=== PATIENT | male | born 1945 | race Hispanic/Latino ===

== ENCOUNTER → 2020-01-18 | Outpatient (CLI) | payer OTHER | END | disposition home or self-care (01) | LOC: SHCH 14:52 | PROVIDERS: ATTEND Internal Medicine | DX: I87.2 Venous insufficiency (chronic) (peripheral) (principal); I65.23 Occlusion and stenosis of bilateral carotid arteries | CPT/HCPCS: 93880 ==

== ENCOUNTER 2021-08-16 08:38 | Day surgery (SDC) | payer OTHER ==
[2021-08-10 10:30] LABS: BASOPHILS % (AUTO) 0.5 % (0.0-5.0); EOSINOPHILS % (AUTO) 1.7 % (0.0-8.0); HEMATOCRIT 42.2 % (42-54); LYMPHOCYTES % (AUTO) 23.5 % (21.0-51.0); MEAN CORPUSCULAR HEMOGLOBIN 31.6 pg (27.0-33.0); MEAN CORPUSCULAR HGB CONC 34.1 g/dL (32.0-36.0); MEAN CORPUSCULAR VOLUME 92.7 fL (79-99); MONOCYTES % (AUTO) 8.8 % (3.0-13.0); NEUTROPHILS % (AUTO) 65.2 % (40.0-77.0); PLATELET COUNT (AUTO) 153 K/uL (130-400); RED BLOOD CELL COUNT(AUTO) 4.55 MIL/uL (4.50-6.20); RED CELL DISTRIBUTION WIDTH 13.1 % (11.0-15.5); WHITE BLOOD COUNT (AUTO) 5.9 K/uL (4.8-10.8)
[2021-08-10 10:30] LABS: APPEARANCE,URINE CLEAR (CLEAR); BILIRUBIN,URINE NEGATIVE (NEGATIVE); COLOR,URINE YELLOW (YELLOW); GLUCOSE, URINE (UA) NEGATIVE (NEGATIVE); KETONES,URINE NEGATIVE (NEGATIVE); LEUKOCYTE ESTERASE ,URINE NEGATIVE (NEGATIVE); NITRATE,URINE NEGATIVE (NEGATIVE); OCCULT BLOOD,URINE SMALL (NEGATIVE); PH,URINE 5.5 (5.0-8.0); PROTEIN,URINE NEGATIVE (NEGATIVE); UROBILINOGEN,URINE 0.2 mg/dL (0.2-1.0)
[2021-08-10 10:50] LABS: POTASSIUM 4.3 mmol/L (3.5-5.1)
[2021-08-10 11:11] LABS: INR 0.99 (0.85-1.15); PROTHROMBIN TIME 10.8 SEC (9.6-11.6)
[2021-08-10 11:13] LABS: PARTIAL THROMBOPLASTIN TIME 27.4 SEC (26.3-35.5)
[2021-08-10 11:23] LABS: BACTERIA,URINE Few /HPF (None Seen); RBC,URINE 0-1 /HPF (0-1); WBC,URINE None Seen /HPF (0-1)
[2021-08-10 11:28] LABS: URIC ACID CRYSTALS,URINE Few /LPF (None Seen)
[2021-08-15 10:38] VITALS: BP 166/78
[~2021-08-16] VITALS: Ht 160 cm; Wt 62.4 kg
[2021-08-16] VITALS (15 sets, daily range): BP systolic 125–177; BP diastolic 50–94
[~2021-08-16 08:38] MED LIST: ATOR20TA65 PO; CEFTRIAXONE 1G VIAL IVP SCH; GENTAMICIN 80 MG/NS 100 ML PB 100 ML IV SCH; LEVO500T90 PO; LOSA100T58 PO
[2021-08-16] MEDS ORDERED: LACTATED RINGERS 1000ML 1,000 ML IV ONE (09:09)
[2021-08-16] MEDS ORDERED: LIDOCAINE PF 100MG/5ML (2%) SYRINGE 5ML ONE (12:22)
[2021-08-16] MEDS ORDERED: ROCURONIUM 10MG/1ML SYR 10 MG/ML ML ONE (12:22)
[2021-08-16] MEDS ORDERED: GLYCOPYRROLATE 1 MG/5 ML SYRINGE ONE (12:22)
[2021-08-16] MEDS ORDERED: FENTANYL CITRATE PF 50 MCG/1 ML 2ML VIAL ONE ×2 (12:23→14:19)
[2021-08-16] MEDS ORDERED: PROPOFOL 10 MG/ML 20ML VIAL IV ONE (12:23)
[2021-08-16] MEDS ORDERED: ONDANSETRON 4MG INJ ONE (12:40)
[2021-08-16] MEDS ORDERED: MEPERIDINE-PF 25 MG/ML SYG ONE (14:31)
[2021-08-16] MEDS ORDERED: HYDRALAZINE 20MG/ML VIAL ONE (14:39)
[2021-08-16] MEDS ORDERED: NEOSTIGMINE 5MG/5ML SYR IV ONE (14:41)
== END 2021-08-16 16:40 | disposition home or self-care (01) ==
LOC: DAH 08:38
PROVIDERS: ATTEND Urology
DX: N40.1 Benign prostatic hyperplasia with lower urinary tract symptoms (principal); N21.0 Calculus in bladder; N32.89 Other specified disorders of bladder; I10 Essential (primary) hypertension; E78.5 Hyperlipidemia, unspecified; Z98.890 Other specified postprocedural states; Z79.01 Long term (current) use of anticoagulants; Z79.899 Other long term (current) drug therapy
CPT/HCPCS: 36415 ×2; 52317; 52648; 71045; 80048; 81001; 82360; 85025; 85610; 85730; 87088; 87635; 93005; A4215; A4221; A4222; A4223; A4315; A4358; A4600; A4663; A6260; C1769; C9803; J0360; J0696; J1580; J2001; J2175; J2405; J2704; J2710; J3010 ×2; J3490; J7120 ×2

== ENCOUNTER → 2022-12-12 | Outpatient (CLI) | payer OTHER ==
[~2022-12-12] MED LIST changes: -CEFTRIAXONE 1G VIAL IVP SCH; -GENTAMICIN 80 MG/NS 100 ML PB 100 ML IV SCH; +LEVO-70 PO; -LEVO500T90 PO; -LOSA100T58 PO; +LOSA100T59 PO
== END | disposition home or self-care (01) ==
LOC: RAH 15:56
PROVIDERS: ATTEND Family Medicine
DX: R29.898 Other symptoms and signs involving the musculoskeletal system (principal)
CPT/HCPCS: 70551